=== PATIENT | male | born 1950 | race Caucasian/White ===

== ENCOUNTER 2017-09-09 09:59 | Inpatient (IN) | payer SELFPAY ==
[2017-09-09] MEDS ORDERED: CEFAZOLIN SODIUM 1 GM PDS ONE ×2 (11:47→18:01)
[2017-09-09] MEDS ORDERED: SODIUM CHLORIDE 0.9% 50 ML 50 ML IV ONE ×2 (11:47→18:01)
[2017-09-09] MEDS: CEFAZOLIN SODIUM 1 GM PDS 1 GM in SODIUM CHLORIDE 0.9% 50 ML 50 ML IV SCH ×2 (12:00→18:53)
[2017-09-09] MEDS: SODIUM CHLORIDE 0.9% FLUSH 10 ML SOL IV SCH ×2 (12:01→18:54)
[2017-09-09] MEDS: NOVOLOG FLEXPEN SC SCH ×3 (12:15→21:06)
[2017-09-09 14:46] LABS: ESTIMATED AVE GLU 355 mg/dl (91-125); HEMOGLOBIN A1C > 14.0 % (4.8-6.0)
[2017-09-09] MEDS ORDERED: NOVOLOG FLEXPEN SC ONE (21:00)
[2017-09-09] MEDS ORDERED: LEVEMIR PEN SC SCH (21:00)
[2017-09-09 21:50] LABS: BASOPHILS % (AUTO) 0 % (0-3); EOSINOPHILS % (AUTO) 0 % (0-9); HEMATOCRIT 46 % (39-53); HEMOGLOBIN 15.3 gm/dl (13.5-17.7); LYMPHOCYTES % (AUTO) 4.115 % (10-50); MEAN CORPUSCULAR HEMOGLOBIN 28.5 pg (27.0-32.0); MEAN CORPUSCULAR VOLUME 86 fL (80-100); MONOCYTES % (AUTO) 7.8 % (0-12); NEUTROPHILS % (AUTO) 87.8 % (37-80)
[2017-09-09 21:52] LABS: CALCIUM 8.9 mg/dl (8.5-10.1); CARBON DIOXIDE 21.2 mEq/L (21-32); CREATININE 1.17 mg/dl (0.80-1.30)
[2017-09-10] MEDS ORDERED: CEFAZOLIN SODIUM 1 GM PDS ONE ×3 (02:12→18:33)
[2017-09-10] MEDS ORDERED: SODIUM CHLORIDE 0.9% 50 ML 50 ML IV ONE ×3 (02:12→18:33)
[2017-09-10] MEDS: SODIUM CHLORIDE 0.9% FLUSH 10 ML SOL IV SCH ×3 (03:05→18:41)
[2017-09-10] MEDS: CEFAZOLIN SODIUM 1 GM PDS 1 GM in SODIUM CHLORIDE 0.9% 50 ML 50 ML IV SCH ×3 (03:05→18:40)
[2017-09-10 07:13] LABS: CALCIUM 8.2 mg/dl (8.5-10.1); CARBON DIOXIDE 28.8 mEq/L (21-32); CREATININE 0.71 mg/dl (0.80-1.30); POTASSIUM 3.7 mMol/L (3.5-5.1)
[2017-09-10 07:33] LABS: HEMATOCRIT 40 % (39-53); HEMOGLOBIN 13.8 gm/dl (13.5-17.7); MEAN CORPUSCULAR HEMOGLOBIN 28.7 pg (27.0-32.0); MEAN CORPUSCULAR HGB CONC 34.5 gm/dl (32.0-36.0); MEAN CORPUSCULAR VOLUME 83 fL (80-100)
[2017-09-10] MEDS: NOVOLOG FLEXPEN SC SCH ×5 (08:38→20:35)
[2017-09-10] MEDS: ENOXAPARIN 40 MG SOL SC SCH (09:38)
[2017-09-10] MEDS ORDERED: LEVEMIR PEN SC SCH (21:00)
[2017-09-11] MEDS ORDERED: SODIUM CHLORIDE 0.9% 50 ML 50 ML IV ONE ×3 (02:22→18:18)
[2017-09-11] MEDS ORDERED: CEFAZOLIN SODIUM 1 GM PDS ONE ×3 (02:22→18:18)
[2017-09-11] MEDS: CEFAZOLIN SODIUM 1 GM PDS 1 GM in SODIUM CHLORIDE 0.9% 50 ML 50 ML IV SCH ×3 (02:33→18:28)
[2017-09-11] MEDS: SODIUM CHLORIDE 0.9% FLUSH 10 ML SOL IV SCH ×3 (02:34→18:56)
[2017-09-11] MEDS: NOVOLOG FLEXPEN SC SCH ×8 (07:27→20:57)
[2017-09-11] MEDS: ENOXAPARIN 40 MG SOL SC SCH (09:04)
[2017-09-11] MEDS: MULTIVITAMIN2 1 EA TAB PO SCH (12:22)
[2017-09-11] MEDS ORDERED: LEVEMIR PEN SC SCH (21:00)
[2017-09-12] MEDS ORDERED: CEFAZOLIN SODIUM 1 GM PDS ONE ×2 (02:12→10:35)
[2017-09-12] MEDS ORDERED: SODIUM CHLORIDE 0.9% 50 ML 50 ML IV ONE ×2 (02:12→10:35)
[2017-09-12] MEDS: CEFAZOLIN SODIUM 1 GM PDS 1 GM in SODIUM CHLORIDE 0.9% 50 ML 50 ML IV SCH ×2 (02:21→10:51)
[2017-09-12] MEDS: SODIUM CHLORIDE 0.9% FLUSH 10 ML SOL IV SCH ×3 (02:21→20:43)
[2017-09-12] MEDS: NOVOLOG FLEXPEN SC SCH ×5 (06:41→21:04)
[2017-09-12] MEDS: ENOXAPARIN 40 MG SOL SC SCH (09:28)
[2017-09-12] MEDS: MULTIVITAMIN2 1 EA TAB PO SCH (09:30)
[2017-09-12] MEDS: LEVOFLOXACIN 500 MG TAB PO SCH (17:14)
[2017-09-12] MEDS: CEPHALEXIN 250 MG/5 ML BOTTLE PO SCH ×2 (17:15→22:17)
[2017-09-12] MEDS: LEVEMIR PEN SC SCH (20:59)
[2017-09-13] MEDS: CEPHALEXIN 250 MG/5 ML BOTTLE PO SCH ×4 (04:00→22:30)
[2017-09-13] MEDS: SODIUM CHLORIDE 0.9% FLUSH 10 ML SOL IV SCH ×3 (04:00→18:03)
[2017-09-13] MEDS: MULTIVITAMIN2 1 EA TAB PO SCH (09:25)
[2017-09-13] MEDS: LEVOFLOXACIN 500 MG TAB PO SCH (09:25)
[2017-09-13] MEDS ORDERED: SODIUM CHLORIDE 0.9% FLUSH 10 ML SOL IV ONE (12:35)
[2017-09-13] MEDS ORDERED: LIDOCAINE HCL 1% MPF 30 SOL ONE (12:46)
[2017-09-13] MEDS: NOVOLOG FLEXPEN SC SCH ×2 (16:08→21:25)
[2017-09-13] MEDS ORDERED: LEVEMIR PEN SC SCH (21:13)
[2017-09-13] MEDS: LEVEMIR PEN SC SCH (21:28)
[2017-09-14] MEDS: SODIUM CHLORIDE 0.9% FLUSH 10 ML SOL IV SCH ×2 (04:21→12:00)
[2017-09-14] MEDS: CEPHALEXIN 250 MG/5 ML BOTTLE PO SCH ×3 (04:22→16:13)
[2017-09-14] MEDS ORDERED: ENOXAPARIN 40 MG SOL SC ONE (08:15)
[2017-09-14] MEDS: NOVOLOG FLEXPEN SC SCH ×2 (08:19→12:10)
[2017-09-14] MEDS: MULTIVITAMIN2 1 EA TAB PO SCH (08:27)
[2017-09-14] MEDS: LEVOFLOXACIN 500 MG TAB PO SCH (08:27)
[2017-09-14] MEDS: ENOXAPARIN 40 MG SOL SC SCH (12:10)
[2017-09-14 16:12] VITALS: BP 157/85; PULSE 89; RESP 16; TEMP 97.9; O2SAT 93
== END 2017-09-14 16:55 | disposition home or self-care (01) | DRG 571 ==
LOC: ACUTE CARE 10:17
PROVIDERS: ADMIT Family Medicine; ATTEND Family Medicine
PROC: 0JBR0ZZ Excision of Left Foot Subcutaneous Tissue and Fascia, Open Approach (ICD-10-PCS; principal; 2017-09-09)
DX: L03.116 Cellulitis of left lower limb (principal); L97.424 Non-pressure chronic ulcer of left heel and midfoot with necrosis of bone; E11.621 Type 2 diabetes mellitus with foot ulcer; E11.42 Type 2 diabetes mellitus with diabetic polyneuropathy; E11.9 Type 2 diabetes mellitus without complications; B95.1 Streptococcus, group B, as the cause of diseases classified elsewhere
CPT/HCPCS: 36415; 73630; 80048; 82962; 83036; 85025; 85651; 87040; 87070; 87075; 87077; 87186; 99252; J0690; J1650; J1815; J2250; J2405; J2765; J3010; A6232; A6402; A6446; A9270-GY; J2001; J2704; L3260

== ENCOUNTER 2018-07-09 07:18 | Day surgery (SDC) | payer MEDICARE, OTHER ==
[2018-07-09] MEDS ORDERED: PROPOFOL 500 MG/50 ML EMU IV ONE (07:57)
[2018-07-09] MEDS ORDERED: LIDOCAINE HCL 1% MPF 30 SOL ONE (07:57)
[2018-07-09] MEDS ORDERED: FENTANYL 100MCG/2ML SOL ONE ×2 (07:57→08:44)
[2018-07-09] MEDS ORDERED: SUCCINYLCHOLINE CHLORIDE 20 MG/ML SOL IV ONE (08:19)
[2018-07-09] MEDS ORDERED: CEFAZOLIN SODIUM 1 GM PDS IV ONE (08:36)
[2018-07-09] MEDS ORDERED: GLYCOPYRROLATE 0.2 MG/ML SOL ONE ×4 (08:57)
[2018-07-09] MEDS ORDERED: NEOSTIGMINE METHYLSULFATE 1 MG/ML SOL ONE (08:57)
[2018-07-09] MEDS: BUPIVACAINE/EPI 0.5% 10 ML SOL INFIL ONE ×2 (08:59→09:27)
[2018-07-09 10:15] VITALS: O2SAT 93
[2018-07-09 10:24] VITALS: BP 107/89; PULSE 91; RESP 20; TEMP 97.4
== END 2018-07-09 11:00 | disposition home or self-care (01) | DRG 395 ==
LOC: SURG 07:18
PROVIDERS: ATTEND Surgery
DX: K40.90 Unilateral inguinal hernia, without obstruction or gangrene, not specified as recurrent (principal); E11.9 Type 2 diabetes mellitus without complications
CPT/HCPCS: 82962; J0330; J0690; J2710; J3010; J7643; A6402; C1781; J2001; J2704